=== PATIENT | male | born 1970 | race Caucasian/White ===

== ENCOUNTER 2016-08-22 18:56 | Emergency (ER) | payer BC, MEDICAID ==
[~2016-08-22 18:56] MED LIST: ANTISOL30 RIGHT EAR; CORTIS10A RIGHT EAR; PERC5TAB12 PO
[2016-08-22 19:06] VITALS: BP 140/89; PULSE 81; RESP 20; TEMP 98.9; O2SAT 96
--- NOTE | 2016-08-22 19:23 | PD ---
HPI Chief Complaint: Musculoskeletal Complaint Time Seen by Provider: 19:14 Travel History International Travel<30 days: No Contact w/Intl Traveler<30days: No Traveled to known affect area: No History of Present Illness HPI 45yo M with no PMH presents to the ED with c/o left lower back pain for 1 week. Pt was helping his daughter move and moving boxes 1 week ago. He lifted a heavy box with books and thinks he twisted his back because his left lower back started hurting after. Pain is localized in left paraspinal muscle L2-L4, worst with movement. Denies any falls, weakness, numbness, fever, chest pain, sob, n/v, abdominal pain, dysuria, hematuria. Pt used ice and went to chiropractor and did not help. Motrin did not help. PFSH Past Medical History Diminished Hearing: No Social History Alcohol Use: Yes (occ) Tobacco Use: Yes (1 ppd) Substance Use: No Allergies-Medications (Allergen,Severity, Reaction): Coded Allergies: No Known Allergies (Unverified , 08/22/16) Reported Meds & Prescriptions Reported Meds & Active Scripts Active Review of Systems Except as stated in HPI: all other systems reviewed are Neg Physical Exam Narrative GENERAL: 45yo M in mild distress. SKIN: Warm and dry. NECK: Trachea midline. No JVD. CARDIOVASCULAR: Regular rate and rhythm. No murmur appreciated. RESPIRATORY: No accessory muscle use. Clear to auscultation. Breath sounds equal bilaterally. GASTROINTESTINAL: Abdomen soft, non-tender, nondistended. No rebound tenderness or guarding. BACK: No midline ttp thoracic or lumbar spine. +TTP paraspinal muscle L2-L4. Negative straight leg test. : No ttp bilateral testicle. No penile discharge. No inguinal hernia palpated. MUSCULOSKELETAL: No obvious deformities. No clubbing. No cyanosis. No edema. NEUROLOGICAL: Awake and alert. No obvious cranial nerve deficits. Motor grossly within normal limits. Normal speech. PSYCHIATRIC: Appropriate mood and affect; insight and judgment normal. Data Data Last Documented VS Vital Signs Date Time Temp Pulse Resp B/P Pulse Ox O2 Delivery O2 Flow Rate FiO2 08/22/16 19:06 98.9 81 20 140/89 96 Orders Diazepam (Valium) (08/22/16 19:30) Ketorolac Inj (Toradol Inj) (08/22/16 19:30) Urinalysis - C+S If Indicated (08/22/16 19:23) Labs Laboratory Tests Test 08/22/16 20:30 Urine Color YELLOW Urine Turbidity CLEAR Urine pH 6.0 Urine Specific [place] 1.030 Urine Protein TRACE mg/dL Urine Glucose (UA) NEG mg/dL Urine Ketones NEG mg/dL Urine Occult Blood NEG Urine Nitrite NEG Urine Bilirubin NEG Urine Leukocyte Esterase NEG Urine RBC 0-3 /hpf Urine WBC 0-2 /hpf Urine Squamous Epithelial 0-5 /hpf Cells Urine Bacteria NONE /hpf Microscopic Urinalysis Comment CULT NOT INDICATED MDM Medical Decision Making Medical Screen Exam Complete: Yes Emergency Medical Condition: Yes Differential Diagnosis Musculoskeletal pain vs. UTI Narrative Course 45yo M with lower back pain that seems very musculoskeletal. No red flags for back pain. No IVDA, fever, midline ttp, fall or neurologic deficits. Pt given valium 5mg PO and toradol 30mg IM. Pt reevaluated at bedside and feels much better. UA showed no blood, no leukocyte. VS stable. Return precautions given. Diagnosis Primary Impression: Musculoskeletal pain Patient Instructions: General Instructions Departure Forms: Tests/Procedures Additional Instructions: Please follow up with your PMD in 3-7 days. Return to the ED if symptoms worsen. Med/Other Pt SpecificInfo: Prescription(s) given Scripts Methocarbamol (Robaxin)750 Mg [id number] Mg PO QID 7 Days Ref 0 Prov:AmyDinora 08/22/16 Hydrocodone-Acetaminophen (Lortab)5-325 Mg Tab1 Tab PO Q6H PRN (PAIN) #7 TAB Ref 0 Prov:Dinora Reyes DO 08/22/16 Disposition: 01 DISCHARGE HOME Condition: Stable ReyesJayashree greeneseven KEATING Aug 22, 2016 19:23
[2016-08-22] MEDS ORDERED: KETOROLAC TROMETHAMINE 60 MG/2 ML (IM) VIAL IM ONE (19:30)
[2016-08-22] MEDS ORDERED: DIAZEPAM 5 MG TAB PO ONE (19:30)
[2016-08-22 20:30] VITALS: RESP 16
[2016-08-22 20:42] LABS: BLOOD, URINE NEG (NEG); GLUCOSE,URINE NEG (NEG); KETONE, URINE NEG (NEG); NITRITE,URINE NEG (NEG)
[2016-08-22 20:55] LABS: URINE COLOR YELLOW (YELLW/STRAW)
[2016-08-22 20:56] LABS: COMMENT (UR) CULT NOT INDICATED; CULTURE IF INDICATED CULT NOT INDICATED; RBC, URINE 0-3 /hpf (0-3); SQUAMOUS EPITHELIAL CELL URINE 0-5 /hpf (0-5); WBC, URINE 0-2 /hpf (0-5)
[2016-08-22] MEDS ORDERED: HYDR-3533 PO (21:16)
[2016-08-22] MEDS ORDERED: ROBA750T PO (21:16)
== END 2016-08-22 21:25 | disposition home or self-care (01) ==
LOC: PHEFT 18:56
DX: M79.1 Myalgia (principal)
CPT/HCPCS: 81001; 96372; 99283; J1885

== ENCOUNTER 2017-09-16 17:04 | Emergency (ER) | payer BC ==
[~2017-09-16] VITALS: Ht 182.9 cm; Wt 86.0 kg
[~2017-09-16 17:04] MED LIST changes: -ANTISOL30 RIGHT EAR; -CORTIS10A RIGHT EAR; +HYDR-3533 PO; -PERC5TAB12 PO; +ROBA750T PO
[2017-09-16 17:09] VITALS: BP 152/77; PULSE 73; RESP 18; TEMP 98.4; O2SAT 97
[2017-09-16] MEDS ORDERED: VENTAER INH (17:51)
[2017-09-16] MEDS ORDERED: HYDR-3516 PO (17:51)
[2017-09-16] MEDS ORDERED: DOXY100C PO (17:51)
[2017-09-16] MEDS ORDERED: BENZ1CAP54 PO (17:51)
[2017-09-16] MEDS ORDERED: PRED20 PO (17:51)
[2017-09-16] MEDS ORDERED: VIST25CA PO (17:56)
--- NOTE | 2017-09-16 18:04 | PD ---
HPI Chief Complaint: Skin Problem Time Seen by Provider: 17:42 Travel History International Travel<30 days: No Contact w/Intl Traveler<30days: No Traveled to known affect area: No History of Present Illness HPI 46-year-old male that presents to the ED for evaluation of possible a reaction to medications. Per patient he was recently seen by his doctor and diagnosed with bronchitis. He was started on doxycycline, prednisone, albuterol and Tessalon Perles. Per patient he is taking all the medications before with exception of the doxycycline. He is concerned that he might be related to this. Per patient he has a rash on his head that she's had before when he has reactions to something. He had a reaction to amoxicillin that was similar he is concerned that he might be related to this or the prednisone. Per patient last time he had amoxicillin he had prednisone the same time and he is concerned that it could be related to this. Per patient the rash has been ongoing for one day. Per patient is pruritic. Not painful. Only to the scalp. Per patient he has bumps on his scalp. He states that his symptoms overall have improved except for the cough. Denies any urinary or bowel movement issues. Per patient his been having productive cough. Denies any abdominal pain. Cough is productive. He actually has finished the prednisone already and currently is not taking them. PFSH Past Medical History Medical History: Denies Significant Hx Diminished Hearing: No Social History Alcohol Use: Yes (occ) Tobacco Use: Yes (1 ppd) Substance Use: No Allergies-Medications (Allergen,Severity, Reaction): Coded Allergies: No Known Allergies (Unverified Adverse Reaction, Unknown, 09/16/17) Reported Meds & Prescriptions Reported Meds & Active Scripts Active Vistaril (Hydroxyzine Pamoate) 25 Mg Cap 25 Mg PO TID PRN Reported Ventolin Hfa 18 GM Inh (Albuterol Sulfate) 90 Mcg/Act Aer 1 Puff INH Q4H PRN Hydrocodone-Acetaminophen 5-325 mg Tab 1 Tab PO Q4H PRN Prednisone 20 Mg Tab 20 Mg PO DIRECTED 40 MG twice a day x 3 days, then 20 MG daily x 3 days, then 10 MG daily x 3 days Benzonatate 100 Mg Cap 100 Mg PO TID PRN Doxycycline Hyclate 100 Mg Cap 100 Mg PO BID Review of Systems Except as stated in HPI: all other systems reviewed are Neg Physical Exam Narrative GENERAL: SKIN: Warm and dry. Patient has hives looking rash to the head. Almost like bumps to the head. Not painful but pruritic. No rales noted. He does have some-looking rash to the neck. He also has scratch velez. HEAD: Atraumatic. Normocephalic. EYES: Pupils equal and round. No scleral icterus. No injection or drainage. ENT: No nasal bleeding or discharge. Mucous membranes pink and moist. Tongue is midline. No uvula deviation. NECK: Trachea midline. No JVD. CARDIOVASCULAR: Regular rate and rhythm. RESPIRATORY: No accessory muscle use. Mild wheezing heard on exam.. Breath sounds equal bilaterally. GASTROINTESTINAL: Abdomen soft, non-tender, nondistended. Hepatic and splenic margins not palpable. MUSCULOSKELETAL: Extremities without clubbing, cyanosis, or edema. No obvious deformities. NEUROLOGICAL: Awake and alert. No obvious cranial nerve deficits. Motor grossly within normal limits. Five out of 5 muscle strength in the arms and legs. Normal speech. PSYCHIATRIC: Appropriate mood and affect; insight and judgment normal. Data Data Last Documented VS Vital Signs Date Time Temp Pulse Resp B/P (MAP) Pulse Ox O2 Delivery O2 Flow Rate FiO2 09/16/17 17:09 98.4 73 18 152/77 (102) 97 Orders Orders Ed Discharge Order (09/16/17 17:55) [facility] Medical Decision Making Medical Screen Exam Complete: Yes Emergency Medical Condition: Yes Medical Record Reviewed: Yes Differential Diagnosis Unclear reaction versus medication reaction versus normal exam versus bronchitis Narrative Course 46-year-old male that presents to the ED for evaluation of a reaction. Patient was properly examined and was found to have signs and symptoms consistent appears to be an allergic reaction. Unclear etiology. Possible reaction to medication. His abdomen reaction like this before to prednisone and amoxicillin but is not sure is related to one of them. He has currently finished a prednisone already. Possible reaction to doxycycline cannot be ruled out. Patient does not have the sunburn-like rash that typically comes with doxycycline. At this time patient has no mucosal involvement. Rash appears to be only to the head. Questionable whether this is something related to a soap or something that he is wearing. At this time I do recommend stopping the doxycycline to rule this out. Patient is already done with prednisone and his symptoms are improving if it is related to the prednisone until less likely. I will start patient on Vistaril to help with itchiness and rash. Told to follow with PCP for further eval. See ED worsening symptoms. Diagnosis Primary Impression: Hives Patient Instructions: General Instructions Additional Instructions: Take medication as prescribed. Follow with PCP. See ED worsening symptoms. Med/Other Pt SpecificInfo: Prescription(s) given Scripts Hydroxyzine Pamoate (Vistaril) 25 Mg Cap 25 MG PO TID Y for ITCHING, #20 CAP 0 Refills Prov: Vielka Figueroa MD 09/16/17 Disposition: 01 DISCHARGE HOME Condition: Stable Beto Mcallister Sep 16, 2017 18:04
== END 2017-09-16 18:15 | disposition home or self-care (01) ==
LOC: PHED 17:04 → PHEFT 18:15
DX: L50.9 Urticaria, unspecified (principal); F17.210 Nicotine dependence, cigarettes, uncomplicated
CPT/HCPCS: 99283